=== PATIENT | female | born 2000 | race African-American/Black ===

== ENCOUNTER 2025-05-08 16:08 | Inpatient (IN) | payer MEDICAID ==
[~2025-05-08] VITALS: Ht 160 cm; Wt 50.0 kg
[2025-05-08 16:47] LABS: COVID AG,FIA SOURCE NASAL SWAB
[2025-05-08 16:52] LABS: PLATELET COUNT (AUTO) 293 K/uL (150-450); RED BLOOD CELL COUNT(AUTO) 5.63 MIL/uL (4.00-5.20); RED CELL DISTRIBUTION WIDTH 12.7 % (11.5-14.5); WHITE BLOOD COUNT (AUTO) 9.3 K/uL (4.5-11.0)
[2025-05-08 17:02] LABS: APPEARANCE,URINE CLEAR (CLEAR); GLUCOSE, URINE (UA) NEGATIVE (NEGATIVE); LEUKOCYTE ESTERASE ,URINE NEGATIVE (NEGATIVE); NITRATE,URINE NEGATIVE (NEGATIVE); OCCULT BLOOD,URINE NEGATIVE (NEGATIVE); PH,URINE DRUG SCREEN 7.0 (5.0-8.0); SPECIFIC GRAVITIY, URINE 1.020 (1.003-1.030)
[2025-05-08 17:03] LABS: CALCIUM, TOTAL 9.3 mg/dL (8.8-10.5); CREATININE 1.10 mg/dL (0.60-1.30); GLOMERULAR FILTR. RATE CALC > 60 mL/min (>60); GLUCOSE,RANDOM 81 mg/dL (70-110); SODIUM SERUM 136 mmol/L (136-145); UREA NITROGEN, BLOOD 12 mg/dL (7-18)
[2025-05-08 17:09] LABS: ALCOHOL, URINE DRUG SCREEN NEGATIVE (NEGATIVE); AMPHET/METH SCREEN,URINE POSITIVE (NEGATIVE); BARBITURATE SCREEN, URINE NEGATIVE (NEGATIVE); CANNABINOID SCREEN,URINE POSITIVE (NEGATIVE); COCAINE SCREEN,URINE NEGATIVE (NEGATIVE); METHADONE SCREEN, URINE NEGATIVE (NEGATIVE)
[2025-05-08 17:12] LABS: SARS-COV2 (COVID) ANTIGEN,FIA Negative (Negative)
[2025-05-08] MEDS ORDERED: MAG HYDROX/ALUMINUM HYD/SIMETH ES 30 ML SUSPENSION UDCUP PO PRN (18:00)
[2025-05-08] MEDS ORDERED: MAGNESIUM HYDROXIDE SUSPENSION 30 ML UDCUP PO PRN (18:00)
[2025-05-08] MEDS ORDERED: MELATONIN 5 MG TABLET PO PRN (18:00)
[2025-05-08] MEDS ORDERED: OLANZapine 5 MG RAPDIS TABLET PO PRN (18:00)
[2025-05-08] MEDS ORDERED: GuaiFENesin/D-METHORPHAN [SUGAR-FREE] 200-20MG/10 ML SYRUP UDCUP PO PRN (18:00)
[2025-05-08] MEDS ORDERED: TUBERCULIN, PURIFIED PROTEIN DERIVATIVE 5 TU/0.1 ML SYRINGE ID ONE (18:00)
[2025-05-08] MEDS ORDERED: ACETAMINOPHEN 325 MG TABLET PO PRN (18:00)
[2025-05-08] MEDS ORDERED: PROMETHAZINE HCL 25 MG TABLET PO PRN (18:00)
[2025-05-08] MEDS ORDERED: LOPERAMIDE HCL 2 MG CAPSULE PO PRN (18:00)
[2025-05-08] MEDS: DIVALPROEX SODIUM 500 MG ER TABLET PO SCH (21:00)
[2025-05-08] MEDS: THIAMINE 100 MG TABLET PO SCH (21:00)
[2025-05-08] MEDS: OLANZapine 5 MG RAPDIS TABLET PO SCH (21:01)
[2025-05-08 22:04] VITALS: O2SAT 96
[2025-05-09 00:46] VITALS: BP 132/82; PULSE 88; RESP 18; TEMP 98.2; O2SAT 98
[2025-05-09] MEDS ORDERED: INFLUENZA VIRUS VACCINE TVS (6MO+) 2025-26/PF 45 MCG/0.5 ML SYRINGE IM. ONE (01:15)
[2025-05-09] MEDS: LITHIUM CARBONATE 300 MG CAPSULE PO SCH (06:23)
[2025-05-09 08:47] VITALS: BP 106/72; PULSE 135; RESP 16; TEMP 97.3; O2SAT 100
[2025-05-09] MEDS: ATOMOXETINE HCL 10 MG CAPSULE PO SCH (09:00)
[2025-05-09] MEDS: NALTREXONE HCL 50 MG TABLET PO SCH (09:28)
[2025-05-09] MEDS: MULTIVITAMINS WITH MINERALS, THERAPEUTIC TABLET PO SCH (09:28)
[2025-05-09] MEDS: FOLIC ACID 1 MG TABLET PO SCH (09:28)
[2025-05-09 12:14] LABS: ASPARTATE AMINOTRANSFERASE 21 U/L (15-37); CALCIUM, TOTAL 9.4 mg/dL (8.8-10.5); CHOL/HDL RATIO 3.1 (3.9-5.7); CREATININE 1.06 mg/dL (0.60-1.30); GLOMERULAR FILTR. RATE CALC > 60 mL/min (>60); LDL CHOL (CALC.) 169 mg/dL (0-130); SODIUM SERUM 139 mmol/L (136-145); TOTAL PROTEIN, SERUM 7.1 g/dL (6.4-8.2); UREA NITROGEN, BLOOD 13 mg/dL (7-18)
[2025-05-09 12:22] LABS: GLUCOSE,RANDOM 44 mg/dL (70-110)
[2025-05-09 12:45] LABS: GLUCOMETER DEV NAME(LOC) BV3S.2; GLUCOSE,POINT OF CARE 62 MG/DL (70-110)
[2025-05-09 17:41] LABS: GLUCOMETER DEV NAME(LOC) BV3S.2; GLUCOSE,POINT OF CARE 75 MG/DL (70-110)
[2025-05-09 20:19] VITALS: BP 127/77; PULSE 84; RESP 18; TEMP 97.7; O2SAT 99
[2025-05-09] MEDS: ZOLPIDEM TARTRATE 10 MG TABLET PO PRN (21:31)
[2025-05-10 00:36] LABS: GLUCOMETER DEV NAME(LOC) BV3S.2; GLUCOSE,POINT OF CARE 77 MG/DL (70-110)
[2025-05-10 07:11] LABS: GLUCOMETER DEV NAME(LOC) BV3S.2; GLUCOSE,POINT OF CARE 70 MG/DL (70-110)
[2025-05-10 08:17] VITALS: BP 136/77; PULSE 93; RESP 17; TEMP 97.5; O2SAT 100
[2025-05-10] MEDS: ESCITALOPRAM OXALATE 10 MG TABLET PO SCH (08:33)
[2025-05-10] MEDS: BuPROPion HCL XL 150 MG ER TABLET PO SCH (08:34)
[2025-05-10] MEDS: ATOMOXETINE HCL 18 MG CAPSULE PO SCH (08:34)
[2025-05-10] MEDS: ATORVASTATIN CALCIUM 20 MG TABLET PO SCH (08:34)
[2025-05-10] MEDS ORDERED: BUPR-49 PO (16:33)
[2025-05-10] MEDS ORDERED: NALT50TA33 PO (16:33)
[2025-05-10] MEDS ORDERED: OXCA300T70 PO (16:33)
[2025-05-10] MEDS ORDERED: ESCI-8 PO (16:33)
[2025-05-10] MEDS ORDERED: ATOM18CA7 PO (16:33)
[2025-05-10] MEDS ORDERED: MELA5TAB40 PO (16:33)
[2025-05-10 17:05] LABS: GLUCOMETER DEV NAME(LOC) BV3S.2; GLUCOSE,POINT OF CARE 95 MG/DL (70-110)
[2025-05-10 20:00] VITALS: BP 129/83; PULSE 97; RESP 17; TEMP 98.1; O2SAT 100
[2025-05-10 21:01] LABS: GLUCOMETER DEV NAME(LOC) BV3S.2; GLUCOSE,POINT OF CARE 125 MG/DL (70-110)
[2025-05-11 08:00] LABS: GLUCOMETER DEV NAME(LOC) BV3S.2; GLUCOSE,POINT OF CARE 93 MG/DL (70-110)
[2025-05-11 08:26] VITALS: BP 132/86; PULSE 95; RESP 16; TEMP 97.3; O2SAT 98
[2025-05-11 09:35] LABS: GLUCOMETER DEV NAME(LOC) BV3S.2; GLUCOSE,POINT OF CARE 107 MG/DL (70-110)
[2025-05-11] MEDS ORDERED: ATOR20TA65 PO (11:10)
[2025-05-11 11:55] LABS: GLUCOMETER DEV NAME(LOC) BV3S.2; GLUCOSE,POINT OF CARE 62 MG/DL (70-110)
== END 2025-05-11 14:30 | disposition home or self-care (01) | DRG 753 ==
LOC: EMS 16:08 → B3A 22:05
PROVIDERS: ADMIT Psychiatry & Neurology Psychiatry; ATTEND Psychiatry & Neurology Psychiatry
PROC: GZHZZZZ Group Psychotherapy (ICD-10-PCS; principal; 2025-05-09)
PROC: GZ58ZZZ Individual Psychotherapy, Cognitive-Behavioral (ICD-10-PCS; 2025-05-09)
PROC: GZ56ZZZ Individual Psychotherapy, Supportive (ICD-10-PCS; 2025-05-09)
DX: F31.10 Bipolar disorder, current episode manic without psychotic features, unspecified (principal); F15.10 Other stimulant abuse, uncomplicated; F41.9 Anxiety disorder, unspecified; Z20.822 Contact with and (suspected) exposure to COVID-19; Z55.9 Problems related to education and literacy, unspecified; Z59.9 Problem related to housing and economic circumstances, unspecified; Z63.9 Problem related to primary support group, unspecified; Z65.3 Problems related to other legal circumstances; Z79.899 Other long term (current) drug therapy
CPT/HCPCS: 80048; 80053; 80061; 80307; 81003; 82962; 83036; 84439; 84443; 84703; 85025; 86592; 99285; G0480